=== PATIENT | female | born 1960 | race American Indian/Alaskan Native ===

== ENCOUNTER 2024-03-08 13:04 | Emergency (ER) | payer OTHER, SELFPAY ==
[2024-03-08 13:07] VITALS: BP 142/68
[2024-03-08 13:09] VITALS: BMI 29.3
[2024-03-08 14:36] LABS: % Basophils 0.7 % (0-2); % Eosinophils 2.7 % (0-6); % Immature Granulocytes 0.4 % (0-0.5); % Lymphocytes 31.9 % (20.5-51.1); % Monocytes 6.8 % (1.7-9.3); % Neutrophils 57.5 % (42.2-75.2); Absolute Basophils 0.1 10^3/uL (0-0.2); Absolute Eosinophils 0.2 10^3/uL (0-0.7); Absolute Lymphocytes 2.2 10^3/uL (1.2-3.4); Absolute Monocytes 0.5 10^3/uL (0.1-0.6); Absolute Neutrophils 3.9 10^3/uL (1.4-6.5); Hematocrit 36.6 % (37.0-47.0); Hemoglobin 12.3 g/dL (12.0-16.0); Mean Corp Hgb Conc. 33.6 g/dL (33.0-37.0); Mean Corpuscular Hgb 27.6 pg (27.0-31.0); Mean Corpuscular Volume 82.1 fL (81.0-99.0); Mean Platelet Volume 9.2 fL (7.4-10.4); Nucleated Red Blood Cells % 0 %; Platelet Count 265 10^3/uL (130-400); Red Blood Cell Count 4.46 10^6/uL (4.20-5.40); Red Cell Dist. Width 12.7 % (11.5-14.5); White Blood Cell Count 6.8 10^3/uL (4.8-10.8)
[2024-03-08] MEDS: TORADOL 15 MG IV (14:42)
[2024-03-08 14:55] LABS: Urine Albumin Negative (Neg - Trace); Urine Bilirubin Negative (Negative); Urine Character Clear (Clear); Urine Color Yellow; Urine Glucose 3+ (Negative); Urine Ketone Negative (Negative); Urine Leukocyte Negative (Negative); Urine Nitrite Negative (Negative); Urine Occult Blood Negative (Negative); Urine Urobilinogen Negative (Neg - 1+); Urine pH 6.5 (5.0-9.0)
[2024-03-08 14:56] LABS: ALT (SGPT) 27 U/L (0-35); AST (SGOT) 40 U/L (14-36); Albumin 4.8 g/dl (3.5-5.0); Alkaline Phosphatase 72 U/L (38-126); Blood Urea Nitrogen 9 mg/dl (7-17); Calcium 10.1 mg/dl (8.4-10.2); Carbon Dioxide 22 mmol/L (22-30); Chloride 104 mmol/L (98-107); Estimated Creatinine Clearance 69 ml/min; Glucose 153 mg/dl (70-99); Lipase 263 U/L (23-300); Potassium 4.3 mmol/L (3.5-5.1); Sodium 137 mmol/L (135-145); Total Bilirubin 0.4 mg/dl (0.2-1.3); Total Protein 7.5 g/dl (6.3-8.2); eGFR > 60.00
[2024-03-08 16:34] VITALS: BP 127/61
--- NOTE | 2024-03-08 16:50 | ED.GENMED ---
History of Present Illness
General
Chief Complaint: Abdominal Pain
Source: patient and family
Exam Limitations: none
Time Seen by Provider: 03/08/24 13:28
Nursing documentation reviewed up to this point in time: agreed with
History of Present Illness
History of Present Illness:
pt is a 63 y/o F with h/o HTN, HLD, NIDDM
lower abd pain/pressure with dysuria and frequency for about 2 months
pt went to PCP and had UA - it is unclear whether they found an infection or empirically treated with cipro bid x 7 days but she completed that course without imprvoement
she also started azo without relief and had some itching and took a dose of diflucan and topical clotrimazole without relief
she has nto had any discarhge
she also feels left sided lower back pain
pt has been told that she needs to see a urogyne but she cannot get appt for antoher 2 mo
pt says her pain is worsening
she has never had this befroe
denies fever, chills, cp, sob, vomiting, diarrhea, constipation, dyscharge
Past History
Past History
ED Past Medical History: HTN, Hypercholesterolemia and NIDDM
ED Past Surgical History: Gynecological (Hysterectomy)
Social History
Tobacco: Non-smoker
Alcohol: None
Drug: None
Personal:
Living: with family
Review of Systems
Review of Systems
Allergies reviewed?: Yes
All Other Systems: Not applicable
Phy Exam
Physical Exam
Physical Exam:
GENERAL: Alert , in no apparent distress
EYE: pupils equal and reactive
NECK: Supple
ENT: o/p clr, mmm.
CARDIAC: Regular rate and rhythm .
LUNGS: Clear breath sounds bilaterally, no acute respiratory distress, no wheezes/rales/rhonchi
ABDOMEN: Soft, moderate suprapubic tendenress no r/g, no cvat, normal bowel sounds
gu: external exam unremarakble, no erytjema, no discharge
NEUROLOGICAL: Alert and oriented, no focal neuro deficits
SKIN: Warm and dry, skin intact.
MUSCULOSKELETAL: No edema, well perfused.\\
PSYCH: Normal and appropriate interaction.
Course
Orders/Labs/Results
Orders:
Orders
03/08/24 14:15
CT Abd/Pel (IV only)-[facility] only Urgent
Comment:
Reason For Exam: lower abd pain, urinary symptmos x 3 weeks, back p
Ketorolac [Toradol] 15 mg IV NOW STA
03/08/24 14:29
Complete Blood Count/With Diff Urgent
Comprehensive Metabolic Panel Urgent
Lipase Urgent
03/08/24 14:47
Urinalysis Reflex To Culture Urgent
Date Specimen was Collected: 03/08/24
Time Specimen was Collected: 14:41
Abnormal Lab Results
03/08/24 03/08/24
14:29 14:47
Hct 36.6 L %
(37.0-47.0)
Glucose 153 H mg/dl
(70-99)
AST 40 H U/L
(14-36)
Urine Glucose 3+ A
(Negative)
03/08/24 14:29
03/08/24 14:29
Vital Signs
Initial and Last Documented VS:
Initial Vital Signs
Temp Pulse Resp BP Pulse Ox
98.7 F 84 16 142/68 98
03/08/24 13:07 03/08/24 13:07 03/08/24 13:07 03/08/24 13:07 03/08/24 13:07
Last Documented Vital Signs
Temp Pulse Resp BP Pulse Ox
98.7 F 71 18 106/58 93
03/08/24 13:07 03/08/24 17:45 03/08/24 17:45 03/08/24 17:00 03/08/24 17:45
MDM/Problems Addressed
MDM/Problems Addressed:
63 y/o F
HTN, hld, NIDDM
2 months of supraubic pressure, dysuria, vaginal irritation/itching
has had treatment with cipro x 7 days 1 mo ago, fluconazole, azo, nothing is helping
she certainly has smoe suprapubic tenderness; her gyne exam externally looks normal, ua neg, labs and CT ap neg; copy given to family
incidental cyst
i'll put her on the GERD diet and suspect intersitital cystitis or vulvodynia
needs outpatient uro pondman
d/w dr. arana who can see in the office
for now will hold on TCAs
try pyridium
*Critical Care Note
Total Time (30-74mins, 75-104mins- exclusive of procedures): Not Applicable
ED Attending Note
-
Portions of this chart may have been created with voice recognition software.� Occasional wrong word or��sound alike� substitutions may have occurred due to the inherent limitations of voice recognition software.
Discharge Plan
Departure
Patient Disposition: Home (Routine Discharge)
Date of Disposition: 03/08/24
Time of Disposition: 17:46
Patient with high blood pressure during this ER visit?: No
Condition: Fair
Covid-19: Not Applicable
Discharge Problem:
Dysuria
Instructions: Pelvic Pain (DC), Abdominal Pain, Adult ED
Prescriptions:
New
phenazopyridine [Pyridium] 200 mg tablet
200 mg PO TID PRN (Reason: Pain) Qty: 6 0RF
No Action
omeprazole 20 MG capsule,delayed release(DR/EC)
20 mg PO BID
sitagliptin phosphate [Januvia] 100 MG tablet
100 mg PO DAILY
calcium carbonate-vitamin D3 1 EACH tablet
1 tab PO QPM
empagliflozin-metformin [Synjardy] 1 EACH tablet
1 tab PO DAILY
metformin 1,000 MG tablet
1,000 mg PO QPM
enalapril maleate 10 MG tablet
20 mg PO QPM
simvastatin 20 MG tablet
20 mg PO QPM
fenofibrate nanocrystallized 145 MG tablet
145 mg PO DAILY
gabapentin 300 MG capsule
300 mg PO TID Qty: 25 0RF
prednisone 50 MG tablet
50 mg PO DAILY Qty: 5 0RF
lidocaine 1 PATCH adhesive patch,medicated
1 patch topical DAILY Qty: 7 0RF
Rx Instructions:
ON FOR 12 HOURS, OFF FOR 12 HOURS
Referrals:
Papi Shipley MD [Family Provider] -
Activity Restrictions/Additional Instructions:
WE ARE NOT SURE THE CAUS EOF SYMPTOMS
YOU SHOULD SEE A UROGYNCOLOGIST FOR FURTHER EVALUATION
IN THE MEANTIME, TRY THE DIET FOR ACID REFLUX
TAKE TYLENOL NEEDED FOR PAIN
TALK TO YOUR DOCTOR ABOUT STARTING A MEDICATION FOR THESE SYMPTOMS
RETURN FOR ANY CONCERNS.
Interventions
Interventions:
*Risk Screen - Suicide Last Done: 03/08/24 13:09
*Neglect/Abuse Screening Last Done: 03/08/24 13:09
*Nursing Disposition Last Done: 03/08/24 17:55
JW-Vgiofj-Fgyzhjgfqa Assessment Last Done: 03/08/24 14:33
Discharge Date and Time
Discharge Date/Time: 03/08/24 18:15
Print Language: [id number]
[2024-03-08 17:00] VITALS: BP 106/58
== END 2024-03-08 18:15 | disposition home or self-care (01) ==
LOC: EMR 13:04
PROVIDERS: Physician Assistant; EMERGENCY PHYSICIAN Emergency Medicine; FAMILY PHYSICIAN Internal Medicine
DX: R30.0 Dysuria (principal); I10 Essential (primary) hypertension; E78.00 Pure hypercholesterolemia, unspecified; E11.9 Type 2 diabetes mellitus without complications
CPT/HCPCS: 99284; 96374; 74177; 80053; 81003; 83690; 85025; Q9967